=== PATIENT | female | born 1995 | race African-American/Black ===

== ENCOUNTER 2018-02-07 13:04 | Emergency (ER) | payer MEDICAID ==
[~2018-02-07] VITALS: Ht 162.6 cm; Wt 64.0 kg
[~2018-02-07 13:04] MED LIST: PREN-88 PO
[2018-02-07] MEDS ORDERED: KETOROLAC 30MG/ML VIAL IV ONE (14:15)
[2018-02-07 14:47] LABS: CLARITY URINE CLEAR (CLEAR); COLOR URINE YELLOW (YELLOW); KETONES URINE NEGATIVE (NEGATIVE); LEUKOCYTE ESTERASE URINE NEGATIVE (NEGATIVE); NITRITE URINE NEGATIVE (NEGATIVE); OCCULT BLOOD URINE NEGATIVE (NEGATIVE); PROTEIN URINE NEGATIVE (NEGATIVE); SPECIFIC GRAVITY URINE 1.024 (1.005-1.030)
[2018-02-07 14:49] LABS: HEMOGLOBIN. 13.1 g/dL (12.0-16.0); MEAN CORPUSCULAR HEMOGLOBIN 28.7 pg (28.0-32.0); MEAN CORPUSCULAR VOLUME 87.6 fL (81.0-99.0); MEAN PLATELET VOLUME 9.1 fl (7.4-10.4); PLATELET 244 x1000/uL (130-400); RED BLOOD CELL COUNT 4.57 mill/uL (4.2-5.4)
[2018-02-07 14:57] LABS: CHLORIDE 104 mEq/L (98-107)
[2018-02-07 15:36] LABS: PLATELET ESTIMATE NORMAL
[2018-02-07] MEDS ORDERED: CEFOXITIN SODIUM 1 G in DEXTROSE 5% WATER 50 ML IV ONE (16:15)
[2018-02-07] MEDS ORDERED: DOXYCYCLINE 100 MG in DEXT 5% WATER 100 ML IV SCH (16:15)
[2018-02-07] MEDS ORDERED: SODIUM CHLORIDE 0.9% 1000ML BAG (SEPSIS BOLUS) IV ONE (16:15)
[2018-02-07] MEDS ORDERED: FENTANYL CITRATE/PF 50MCG/ML 2ML VIAL IV ONE (16:15)
[2018-02-07] MEDS ORDERED: CEFOXITIN SODIUM 1 G in DEXTROSE 5% WATER 50 ML IV SCH (16:45)
[2018-02-07 18:49] VITALS: BP 104/62
== END 2018-02-07 18:50 | disposition home or self-care (01) ==
LOC: ER 13:04 → CANBEDREQ 19:44
DX: N73.9 Female pelvic inflammatory disease, unspecified (principal); R10.2 Pelvic and perineal pain
CPT/HCPCS: 36415; 76830; 76856; 80053; 81003; 81025; 83605; 84145; 85025; 87040; 87086; 96365; 96367; 96375; 99284; J0694; J1885; J3010; J3490; J7030; J7060

== ENCOUNTER 2019-02-02 12:43 | Emergency (ER) | payer MEDICAID ==
[~2019-02-02] VITALS: Ht 165.1 cm; Wt 63.0 kg
[2019-02-02 13:00] VITALS: BP 124/74
[2019-02-02] MEDS ORDERED: KETOROLAC 30MG/ML VIAL IM ONE (14:00)
== END 2019-02-02 15:44 | disposition home or self-care (01) ==
LOC: ER 12:43
DX: J18.9 Pneumonia, unspecified organism (principal); M54.6 Pain in thoracic spine; M54.5 Low back pain; Z87.828 Personal history of other (healed) physical injury and trauma
CPT/HCPCS: 71046; 72100; 81025; 96372; 99283; J1885